=== PATIENT | female | born 1955 | race African-American/Black ===

== ENCOUNTER 2018-11-11 14:52 | Emergency (ER) | payer OTHER, SELFPAY ==
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
== END 2018-11-11 17:33 | disposition home or self-care (01) ==
LOC: ERS 14:52
DX: S16.1XXA Strain of muscle, fascia and tendon at neck level, initial encounter (principal); E11.9 Type 2 diabetes mellitus without complications; I10 Essential (primary) hypertension; Z79.4 Long term (current) use of insulin; V43.52XA Car driver injured in collision with other type car in traffic accident, initial encounter
CPT/HCPCS: 70450; 72125